=== PATIENT | male | born 1965 | race Caucasian/White ===

== ENCOUNTER → 2022-12-07 10:42 | Outpatient (CLI) | payer OTHER, SELFPAY ==
[2022-12-07 12:31] LABS: Prostate Specific Antigen 1.33 ng/mL (0.10-4.00)
== END ==
PROVIDERS: PCP Family Medicine; Referring Provider Specialist; Visit Provider Specialist
DX: N40.1 Benign prostatic hyperplasia with lower urinary tract symptoms (principal); N13.8 Other obstructive and reflux uropathy
CPT/HCPCS: 36415; 84153

== ENCOUNTER → 2023-01-27 14:00 | Outpatient (CLI) | payer OTHER, SELFPAY ==
[2023-01-27 16:12] LABS: Prostate Specific Antigen 1.15 ng/mL (0.10-4.00)
== END ==
PROVIDERS: PCP Family Medicine; Referring Provider Specialist; Visit Provider Specialist
DX: N13.8 Other obstructive and reflux uropathy (principal); N40.1 Benign prostatic hyperplasia with lower urinary tract symptoms
CPT/HCPCS: 36415; 84153

== ENCOUNTER → 2023-08-12 08:25 | Outpatient (CLI) | payer OTHER, SELFPAY ==
[2023-08-12 09:41] LABS: Prostate Specific Antigen 1.73 ng/mL (0.10-4.00)
== END ==
PROVIDERS: PCP Family Medicine; Referring Provider Specialist; Visit Provider Specialist
DX: N40.1 Benign prostatic hyperplasia with lower urinary tract symptoms (principal); N13.8 Other obstructive and reflux uropathy; Z80.42 Family history of malignant neoplasm of prostate
CPT/HCPCS: 36415; 84153

== ENCOUNTER 2023-12-29 06:15 | Day surgery (SDC) | payer OTHER, SELFPAY ==
[2023-12-29] VITALS (11 sets, daily range): BP systolic 99–126; BP diastolic 53–78; PULSE 55–701; RESP 9–19; TEMP 36.3–36.8; O2SAT 97–100
[2023-12-29] MEDS: LACTATED RINGERS 1,000 ML 42 ML IV ×2 (06:56→08:54)
--- NOTE | 2023-12-29 07:33 | PM.PREOP ---
Pre-operative Note Interval Note History & Physical reviewed/Exam performed by Physician: Yes Changes to H&P: No
[2023-12-29] MEDS: CEFAZOLIN 2 GM/100 ML PREMIX 100 ML IV (07:49)
--- NOTE | 2023-12-29 08:09 | SUR.OPER ---
Lithotomy on padded OR bed, head on pillow, arms secured on padded arm boards at <90 degrees abduction. Legs secured in padded yellow fins stirrups.
[2023-12-29] MEDS: TRANEXAMIC ACID 1,000 MG in SODIUM CHLORIDE 0.9% 100 ML 200 MG IV ×2 (08:59→09:24)
[2023-12-29] MEDS: ACETAMINOPHEN IV 1,000 MG/100 ML VIAL 400 MG IV (09:00)
--- NOTE | 2023-12-29 09:56 | PM.OP.1 ---
Operative Date/Time/Diagnoses Date of procedure: 12/29/23 Time of procedure: 09:35 Pre-op diagnosis: Bladder outlet obstruction Post-op diagnosis: same Procedure & Clinicians Procedure: 1. Cystoscopy/Aquablation. 2. Cystoscopy/Transurethral resection of prostate. 3. Transrectal ultrasound-diagnostic, and guidance. Same procedure as scheduled: Yes Indications: 1. Bladder outlet obstruction. 2. Failure of medical therapy. Surgeon: Asael Waddell Click Yes if Unassisted: Yes Anesthesia Type: General Operative Notes Findings: 1. Urethra-normal caliber without annular stricture or lesion. 2. External sphincter coapted with normal overlying urothelium and vascularity. 3. Prostate-3.5-4 cm length with obstructing lateral lobe hyperplasia. 4. Bladder-1 to 2+ trabeculation. Normal ureteral orifices bilaterally. Closure Type: not applicable Specimen(s): none sent Applied: catheter (Twenty-two [place] 3 way hematuria catheter.) Estimated Blood Loss (mL): 5 Blood products transfused: none Procedure in detail: The patient was positioned in supine and was administered general anesthesia. He was then repositioned in semi lithotomy in the lower abdomen, genitalia, and groin were then prepped and draped in sterile fashion. 60 cc of lubricating jelly were then instilled in the rectum and the transrectal ultrasound probe was position for visualization. There was extreme difficulty with adequate visualization of necessary anatomic landmarks. Therefore the probe was removed and the rectum was irrigated with copious sterile saline with evacuation of a large volume of loose stool and gas. The patient was reprepped. 60 cc of lubricating jelly were then instilled in the rectal vault. The transrectal ultrasound probe was then passed in the rectal vault and positioned appropriately for treatment planning and conduct of Aquablation. The cystoscope and hand piece were then passed lower urinary tract under direct and ultrasound guidance. Orientation and alignment of the scope and the TRUS probe was then conducted. Confirmation of jets at the 3, and 9 positions was then conducted laterally. 1 position was confirmed the sagittal view and the treatment probe was then repositioned so that the 1 was at the same level is most proximal prostate tissue plan for treatment. Now, in the transverse plane treatment depth parameters were set laterally and in the AP. Transverse imaging was then conducted with placement of treatment boundary cursors above the bladder neck, and just inside the prostate capsule through the midpoint and then making adjustments more anteriorly toward the verumontanum. Transverse and sagittal treatment plan was then confirmed. Treatment was then commenced and monitored closely with adjustments in the depth as indicated by the treatment line and ultrasonographic findings. A 2nd pass was then conducted under altered sound guidance. The hand piece and cystoscope were then removed from the lower urinary tract. The resectoscope was then advanced in the lower urinary tract under direct visualization. The bladder contents were drained of small amount of clot and blood-tinged irrigant. The resectoscope was then fitted with the resecting loop and focal bladder neck cautery and resection of the small amount of devitalized prostate tissue was undertaken from approximately the 3 to 9 position. Additional focal cautery was conducted where needed within the fossa. Anteriorly there was not much needed in terms of hemostasis. The verumontanum was preserved as were the trigone and bilateral ureteral orifices. The bladder contents were then again irrigated. Final inspection revealed excellent hemostasis. The bladder was then left partially fill and the resectoscope was removed. A 22 [place] three-way hematuria catheter was then advanced lower urinary tract over a catheter guide. The balloon was then inflated to 30 cc. Outflow was clear. The patient was then repositioned in supine and the three-way outflow was placed to gravity drainage. The patient was then awakened, transferred to [facility], and transferred to recovery in stable condition. Complications: none Post-operative Condition: stable Disposition: PACU Plan for aftercare: 1. Observe in PACU on 0.9 normal saline continuous bladder irrigation. 2. Possible DC home today verses outpatient with the bed status for continued observation.
[2023-12-29] MEDS: HYDROMORPHONE 1 MG INJ IV ×2 (10:01→10:17)
[2023-12-29] MEDS: hydrOXYzine 50 MG/ML INJ 25 MG IM (10:10)
[2023-12-29] MEDS: OXYCODONE IR 5 MG TABLET PO (11:33)
== END 2023-12-29 13:11 | disposition home or self-care (01) ==
LOC: OR 06:17 → AC 06:17
PROVIDERS: PCP Family Medicine; Referring Provider Specialist; Visit Provider Specialist
PROC: 0VT08ZZ Resection of Prostate, Via Natural or Artificial Opening Endoscopic (ICD-10-PCS; CPT 52597; principal; 2023-12-29 07:45)
DX: N40.1 Benign prostatic hyperplasia with lower urinary tract symptoms (principal); N13.8 Other obstructive and reflux uropathy; R39.12 Poor urinary stream; R35.0 Frequency of micturition
CPT/HCPCS: 0421T; C2596; J0136; J0690; J1100; J1170; J2250; J2405; J2704; J3010; J3410; J3490

== ENCOUNTER → 2023-12-31 14:33 | Outpatient (CLI) | payer OTHER, SELFPAY | PROVIDERS: PCP Family Medicine; Visit Provider Specialist | DX: N40.1 Benign prostatic hyperplasia with lower urinary tract symptoms (principal); N13.8 Other obstructive and reflux uropathy | CPT/HCPCS: 87086 ==

== ENCOUNTER → 2024-02-18 08:17 | Outpatient (CLI) | payer OTHER, SELFPAY ==
[2024-02-18 11:02] LABS: Prostate Specific Antigen 1.55 ng/mL (0.10-4.00)
== END ==
PROVIDERS: PCP Family Medicine; Referring Provider Specialist; Visit Provider Specialist
DX: Z87.898 Personal history of other specified conditions (principal)
CPT/HCPCS: 36415; 84153